=== PATIENT | female | born 1975 | race Caucasian/White ===

== ENCOUNTER 2016-09-08 07:08 | Emergency (ER) | payer MEDICAID, OTHER ==
[~2016-09-08] VITALS: Ht 170.2 cm; Wt 101.8 kg
[~2016-09-08 07:08] MED LIST: EXCETAB; FIORIC PO; Z.0.BCPILL PO
[2016-09-08 07:10] VITALS: BP 137/84; PULSE 120; RESP 16; TEMP 100.7; O2SAT 99
[2016-09-08] MEDS ORDERED: BCP PO (07:22)
[2016-09-08 07:25] VITALS: BP 140/75; PULSE 116; RESP 14; TEMP 100.3; O2SAT 97
[2016-09-08] MEDS ORDERED: ZITHTAB PO (07:49)
[2016-09-08] MEDS ORDERED: BENZ100 PO (07:49)
--- NOTE | 2016-09-08 07:49 | PD ---
HPI Chief Complaint: Cold / Flu Symptoms Time Seen by Provider: 07:33 Travel History International Travel<30 days: No Contact w/Intl Traveler<30days: No Traveled to known affect area: No History of Present Illness HPI 41-year-old female complains of sore throat headache body ache coughing congestion fever. Patient states that the symptoms started 2 days ago. Patient states that headache aching headache diffuse over the head. Patient denies any visual change. Patient denies any neck pain. Patient states the cough is persistent and productive. Patient denies any nausea vomiting diarrhea. Patient denies any chance of being . PFSH Past Medical History Medical History: Denies Significant Hx Diminished Hearing: No Headaches: Yes Influenza Vaccination: No ?: Not LMP: Last week : 2 Para: 2 Past Surgical History Cholecystectomy: Yes Gynecologic Surgery: Yes (RIGHT OVARY REMOVED) Social History Alcohol Use: Yes (OCC) Tobacco Use: No Substance Use: No Allergies-Medications (Allergen,Severity, Reaction): Coded Allergies: Hydrocodone (Verified Allergy, Severe, Tongue swelling, 09/08/16) Patient states this reaction happened one time and she has taken it since then without issue. Tylenol #3 (Verified Adverse Reaction, Severe, Nausea, 09/08/16) Reported Meds & Prescriptions Reported Meds & Active Scripts Active Reported [Bcp] 1 Tab PO DAILY Review of Systems General / Constitutional: Positive: Fever HENT: Positive: Headaches, Congestion Respiratory: Positive: Cough Physical Exam Narrative GENERAL: Well-nourished, well-developed patient. SKIN: Warm and dry. HEAD: Normocephalic. EYES: No scleral icterus. No injection or drainage. TM: Clear. Throat: Mild erythematous. No exudate and no edema. NECK: Supple, trachea midline. No JVD. Patient has mild anterior cervical lymphadenopathy. No meningismus CARDIOVASCULAR: Regular rate and rhythm without murmurs, gallops, or rubs. RESPIRATORY: Breath sounds equal bilaterally. No accessory muscle use. GASTROINTESTINAL: Abdomen soft, non-tender, nondistended. MUSCULOSKELETAL: No cyanosis, or edema. BACK: Nontender without obvious deformity. No CVA tenderness. Neurologic exam normal. Data Data Last Documented VS Vital Signs Date Time Temp Pulse Resp B/P Pulse Ox O2 Delivery O2 Flow Rate FiO2 09/08/16 07:25 100.3 116 14 140/75 97 Room Air MDM Medical Decision Making Medical Screen Exam Complete: Yes Emergency Medical Condition: Yes Differential Diagnosis Differential diagnosis including viral syndrome, sinusitis, bronchitis, pneumonia. Narrative Course 41-year-old female with headache, fever, sore throat,, body ache, coughing congestion. Diagnosis Primary Impression: Bronchitis Additional Impression: Viral syndrome Patient Instructions: General Instructions Additional Instructions: Take medications as directed. Tylenol ibuprofen for aching pain and headache. Follow-up with personal physician. Return if persistent problem or worse. Med/Other Pt SpecificInfo: Prescription(s) given Scripts Benzonatate (Tessalon Perles)100 Mg [id number] Mg PO TID PRN (COUGH) #21 CAP Prov:Gildardo Dubose MD 09/08/16 Azithromycin (Zithromax Z-Shawn)250 Mg [id number] Mg PO DIRECTED #1 DSPK 500 MG (2 tabs) day 1, then 1 tab days 2-5. Prov:Gildardo Dubose MD 09/08/16 Disposition: 01 DISCHARGE HOME Condition: Stable Gildardo Dubose MD Sep 08, 2016 07:49
== END 2016-09-08 08:00 | disposition home or self-care (01) ==
LOC: PHED 07:08
DX: J40 Bronchitis, not specified as acute or chronic (principal); B34.9 Viral infection, unspecified
CPT/HCPCS: 99283

== ENCOUNTER 2017-05-08 04:31 | Emergency (ER) | payer MEDICAID ==
[~2017-05-08] VITALS: Ht 170.2 cm; Wt 99.3 kg
[2017-05-08 04:31] VITALS: BP 145/77; PULSE 90; RESP 16; TEMP 97.7; O2SAT 100
[~2017-05-08 04:31] MED LIST changes: +BCP PO; +BENZ100 PO; -EXCETAB; -FIORIC PO; -Z.0.BCPILL PO; +ZITHTAB PO
[2017-05-08 04:38] VITALS: BP 145/77; PULSE 90; RESP 16; TEMP 97.7; O2SAT 100
--- NOTE | 2017-05-08 04:52 | PD ---
HPI Chief Complaint: headache Time Seen by Provider: 04:41 Travel History International Travel<30 days: No Contact w/Intl Traveler<30days: No Traveled to known affect area: No History of Present Illness HPI The patient is a 42-year-old female with a history of migraine headaches but states she rarely gets a migraine headache and is only had about 3 in her life. She complains of a headache in the occipital area radiating to the front. This is been going on for 2-1/2 days and is of gradual onset, not a thunderclap headache. She denies any fever, nausea, vomiting or diarrhea. She does have photophobia and phonophobia. She denies any focal neurologic change. She was here last in September of this year and had a CAT scan of the head and face because she fell on her face. The allergy list acetaminophen is be one of her allergies. The patient denies this and states she takes Tylenol/acetaminophen without any problem. PFSH Past Medical History Diminished Hearing: No Headaches: Yes : 2 Para: 2 Past Surgical History Cholecystectomy: Yes Gynecologic Surgery: Yes (RIGHT OVARY REMOVED) Social History Alcohol Use: Yes (OCC) Tobacco Use: No Substance Use: No Allergies-Medications (Allergen,Severity, Reaction): Coded Allergies: hydrocodone (Unverified Allergy, Severe, Tongue swelling, 03/17/17) Patient states this reaction happened one time and she has taken it since then without issue. acetaminophen (Unverified Adverse Reaction, Severe, Nausea, 03/17/17) codeine (Unverified Adverse Reaction, Severe, Nausea, 03/17/17) Reported Meds & Prescriptions Reported Meds & Active Scripts Active Tessalon Perles (Benzonatate) 100 Mg Cap 200 Mg PO TID PRN Zithromax Z-Shawn (Azithromycin) 250 Mg Dspk 250 Mg PO DIRECTED 500 MG (2 tabs) day 1, then 1 tab days 2-5. Reported [Bcp] 1 Tab PO DAILY Review of Systems Except as stated in HPI: all other systems reviewed are Neg Physical Exam Narrative GENERAL: The patient is alert, oriented 3 in moderate apparent distress with her headache. Her vital signs show blood pressure 145/77 but are otherwise normal. SKIN: Focused skin assessment warm/dry. HEAD: Atraumatic. Normocephalic. EYES: Pupils equal and round. No scleral icterus. No injection or drainage. ENT: No nasal bleeding or discharge. Mucous membranes pink and moist. NECK: Trachea midline. No JVD. CARDIOVASCULAR: Regular rate and rhythm. No murmur appreciated. RESPIRATORY: No accessory muscle use. Clear to auscultation. Breath sounds equal bilaterally. GASTROINTESTINAL: Abdomen soft, non-tender, nondistended. Hepatic and splenic margins not palpable. MUSCULOSKELETAL: No obvious deformities. No clubbing. No cyanosis. No edema. NEUROLOGICAL: Awake and alert. No obvious cranial nerve deficits. Motor grossly within normal limits. Normal speech. PSYCHIATRIC: Appropriate mood and affect; insight and judgment normal. Data Data Last Documented VS Vital Signs Date Time Temp Pulse Resp B/P (MAP) Pulse Ox O2 Delivery O2 Flow Rate FiO2 05/08/17 05:35 18 100 Room Air 05/08/17 04:38 97.7 90 Orders Orders Sumatriptan Inj (Imitrex Inj) (05/08/17 05:00) Ondansetron Odt (Zofran Odt) (05/08/17 05:15) Ecg Monitoring (05/08/17 05:32) Iv Access Insert/Monitor (05/08/17 05:32) Oximetry (05/08/17 05:32) Ketorolac Inj (Toradol Inj) (05/08/17 05:45) Prochlorperazine Inj (Compazine Inj) (05/08/17 05:45) MDM Medical Decision Making Medical Screen Exam Complete: Yes Emergency Medical Condition: Yes Medical Record Reviewed: Yes Differential Diagnosis Migraine headache, tension headache, tension/migraine combination headache, intracranial bleed-highly unlikely Narrative Course It is now 0600 and the patient's headache and nausea have resolved. She wants to go home. She will be given prescriptions for Compazine and Fioricet. She should follow-up with her primary care physician next week. Impression: Migraine headache. Diagnosis Primary Impression: Migraine headache Additional Instructions: Follow-up with her primary care physician next week. If you get another headache, try the Compazine for nausea and the Fioricet. Both these medicines actually help headaches. Med/Other Pt SpecificInfo: Prescription(s) given Scripts Prochlorperazine Maleate (Prochlorperazine Maleate) 10 Mg Tab 10 MG PO Q6H Y for NAUSEA OR VOMITING, #21 TAB 0 Refills Prov: Sudhakar Patel MD 05/08/17 Eivykpwqlm-Noejealurczcl-Smwkpadh (Fioricet) 50-300-40 Mg Cap 1-2 CAP PO Q6H Y for HEADACHE, #21 CAP 0 Refills Prov: Sudhakar Patel MD 05/08/17 Disposition: 01 DISCHARGE HOME Condition: Stable Sudhakar Patel MD May 08, 2017 04:52
[2017-05-08] MEDS ORDERED: SUMAtriptan INJ 6 MG/0.5 ML VIAL SQ ONE (05:00)
[2017-05-08] MEDS ORDERED: ONDANSETRON ODT 4 MG TAB PO ONE (05:15)
[2017-05-08 05:35] VITALS: RESP 18; O2SAT 100
[2017-05-08] MEDS ORDERED: PROCHLORPERAZINE INJ 10 MG/2 ML VIAL IVP ONE (05:45)
[2017-05-08] MEDS ORDERED: KETOROLAC TROMETHAMINE 30 MG/ML (IVP) VIAL IVP ONE (05:45)
[2017-05-08] MEDS ORDERED: PROC10TA PO (06:02)
[2017-05-08] MEDS ORDERED: BUTA1CAP PO (06:02)
[2017-05-08 06:16] VITALS: BP 145/77
== END 2017-05-08 06:17 | disposition home or self-care (01) ==
LOC: PHED 04:31
DX: G43.909 Migraine, unspecified, not intractable, without status migrainosus (principal); Z79.899 Other long term (current) drug therapy; Z88.5 Allergy status to narcotic agent; Z88.6 Allergy status to analgesic agent
CPT/HCPCS: 96372; 96374; 96375; 99284; J0780; J1885; J3030

== ENCOUNTER 2017-10-18 22:56 | Emergency (ER) | payer MEDICAID ==
[~2017-10-18] VITALS: Ht 170.2 cm; Wt 92.0 kg
[~2017-10-18 22:56] MED LIST changes: +BUTA1CAP PO; +PROC10TA PO
[2017-10-18 23:18] VITALS: BP 135/68; PULSE 100; RESP 18; TEMP 98.8; O2SAT 100
[2017-10-18] MEDS ORDERED: BIRTH CONTROL (23:56)
--- NOTE | 2017-10-19 00:04 | PD ---
HPI Chief Complaint: Cold / Flu Symptoms Time Seen by Provider: 00:01 Travel History International Travel<30 days: No Contact w/Intl Traveler<30days: No Traveled to known affect area: No History of Present Illness HPI 42-year-old female presents for evaluation of sore throat, dry cough, myalgias. Symptoms started yesterday. Symptoms are mild, no aggravating or relieving factors. No sick contacts. No abdominal pain, nausea or vomiting, flank pain, dysuria, rash. She has no other complaints at this time. [facility] [place] Past Medical History Medical History: Denies Significant Hx Diminished Hearing: No Headaches: Yes Tetanus Vaccination: < 5 Years Influenza Vaccination: No ?: Not LMP: 09/20/2017 : 2 Para: 2 Past Surgical History Cholecystectomy: Yes Gynecologic Surgery: Yes (RIGHT AND FALLOPIAN TUBE OVARY REMOVED) Social History Alcohol Use: Yes (OCC) Tobacco Use: No Substance Use: No Allergies-Medications (Allergen,Severity, Reaction): Coded Allergies: No Known Allergies (Unverified , 10/18/17) Reported Meds & Prescriptions Reported Meds & Active Scripts Active Bromfed DM Liq (Xtllwzmjloppybf-Xnxkbqvviwwmgtl-LD Liq) 30-2-10 Mg/5 Ml Syrp 5 Ml PO Q6H PRN Tessalon Perles (Benzonatate) 100 Mg Cap 200 Mg PO TID PRN Reported [ Control] Review of Systems Except as stated in HPI: all other systems reviewed are Neg Physical Exam Narrative GENERAL: Well-nourished female no acute distress SKIN: Warm and dry. HEAD: Atraumatic. Normocephalic. EYES: Pupils equal and round. No scleral icterus. No injection or drainage. ENT: No nasal bleeding or discharge. Mucous membranes pink and moist. No oral pharyngeal erythema or exudate. NECK: Trachea midline. No JVD. No lymphadenopathy CARDIOVASCULAR: Regular rate and rhythm. No murmur appreciated. RESPIRATORY: No accessory muscle use. Clear to auscultation. Breath sounds equal bilaterally. No crackles no wheezing no rhonchi GASTROINTESTINAL: Abdomen soft, non-tender, nondistended. Hepatic and splenic margins not palpable. Data Data Last Documented VS Vital Signs Date Time Temp Pulse Resp B/P (MAP) Pulse Ox O2 Delivery O2 Flow Rate FiO2 10/18/17 23:18 98.8 100 18 135/68 (90) 100 Orders Orders Influenzae A/B Antigen (10/19/17 00:02) Group A Rapid Strep Screen (10/19/17 00:02) Strep Culture (Group A) (10/19/17 00:25) Ed Discharge Order (10/19/17 00:54) MDM Medical Decision Making Medical Screen Exam Complete: Yes Emergency Medical Condition: Yes Medical Record Reviewed: Yes Differential Diagnosis Bronchitis, pneumonia, influenza, pharyngitis, tonsillitis Narrative Course Rapid strep screen and influenza antigen tests have been ordered. They are both negative. She appears to have a viral respiratory infection. She is stable for discharge. Diagnosis Primary Impression: Upper respiratory infection Additional Instructions: Medication as needed, stay well-hydrated well-nourished, return for any emergent medical conditions. Med/Other Pt SpecificInfo: Prescription(s) given Scripts Zwkbaeoqnyzvorz-Cokxswfnbetluap-VG Liq (Bromfed DM Liq) 30-2-10 Mg/5 Ml Syrp 5 ML PO Q6H Y for COUGH AND/OR COLD SYMPTOMS, #1 BOTTLE 0 Refills Prov: Simeon Payne MD 10/19/17 Benzonatate (Tessalon Perles) 100 Mg Cap 200 MG PO TID Y for COUGH, #30 CAP 0 Refills Prov: Simeon Payne MD 10/19/17 Disposition: 01 DISCHARGE HOME Condition: Stable Joselo Miramontes Oct 19, 2017 00:04
[2017-10-19] MEDS ORDERED: BROMSYP PO (00:55)
[2017-10-19] MEDS ORDERED: BENZ100 PO (00:55)
[2017-10-19] MEDS ORDERED: OSEL75 PO (02:07)
== END 2017-10-19 01:04 | disposition home or self-care (01) ==
LOC: NEPD 22:56
DX: J10.1 Influenza due to other identified influenza virus with other respiratory manifestations (principal)
CPT/HCPCS: 87081; 87804; 87880; 99283